=== PATIENT | male | born 1970 | race Caucasian/White ===

== ENCOUNTER → 2025-02-25 11:30 | Outpatient (CLI) | payer OTHER, SELFPAY ==
--- NOTE | 2025-02-25 | DI.CT.S_ITS ---
PROCEDURE: CT CHEST WO CON INDICATIONS: CAD TECHNIQUE: Noncontrast 5 mm thick sections acquired from the pulmonary apices to the posterior costophrenic angles. 1 mm lung window, 5 mm thick coronal and sagittal and 7 mm axial MIP reformats were then acquired. For radiation dose reduction, the following was used: automated exposure control, adjustment of mA and/or kV according to patient size. COMPARISON: None. FINDINGS: Image quality: Diagnostic. Lower Neck: No enlarged lymph nodes. Thyroid: No thyroid nodules which require sonographic follow up, per consensus guidelines. Axillae: No enlarged lymph nodes. Chest Wall: Mild gynecomastia. Bones: Unremarkable. Lungs and Pleura: Scattered pulmonary micro nodules. For example, the 2 millimeter nodule in the anterior right lower lobe (series 3, image 235) and 3 millimeter lesion in the lateral right middle lobe (series 3, image 203). Heart: Heart size is mildly enlarged. No pericardial effusion. Three-vessel coronary artery calcifications, with LAD stent. Mitral and aortic valve calcifications. Thoracic Vessels: Mild dilation of the aorta at the sinuses of Valsalva, measuring 4.1 centimeter. Mediastinum and Yoanna: No enlarged lymph nodes. Esophagus: No wall thickening. No hiatal hernia. Upper Abdomen: Visualized upper abdomen solid organs and bowel loops appear normal. IMPRESSION: Mild dilation of the aorta at the sinuses of Valsalva, measuring 4.1 centimeter. Pulmonary micronodules. Consider 12 month follow-up if at high risk for developing lung cancer, per Fleischner Society guidelines. Dictated by: Myron Montana M.D. on 02/25/2025 at 14:41 Approved by: Myron Montana M.D. on 02/25/2025 at 14:44
== END ==
PROVIDERS: Referring Provider Internal Medicine; Visit Provider Internal Medicine
DX: I25.10 Atherosclerotic heart disease of native coronary artery without angina pectoris (principal); I08.0 Rheumatic disorders of both mitral and aortic valves; I77.810 Thoracic aortic ectasia; Z95.5 Presence of coronary angioplasty implant and graft
CPT/HCPCS: 71250